=== PATIENT | male | born 1940 | race Asian ===

== ENCOUNTER 2020-02-10 06:09 | Day surgery (SDC) | payer OTHER ==
[2020-02-09 17:27] VITALS: BMI 17.9
[2020-02-10] MEDS ORDERED: LIDOCAINE HCL 1%, 10 MG/ML (20ML VIAL) ONE ×2 (07:15→08:34)
[2020-02-10] MEDS ORDERED: HEPARIN NA (PORCINE) 5,000 UNITS/ML 1ML VIAL ONE ×4 (07:15→09:27)
[2020-02-10] MEDS ORDERED: POVIDONE-IODINE OINTMENT 10% - 28.4 GM TUBE ONE (07:16)
[2020-02-10] MEDS ORDERED: LIDOCAINE HCL 1%, 10 MG/ML (20ML VIAL) ID ONE ×4 (07:42→08:25)
[2020-02-10] MEDS ORDERED: HEPARIN NA (PORCINE) 5,000 UNITS/ML 1ML VIAL SQ ONE ×2 (07:43→08:41)
[2020-02-10] MEDS ORDERED: POVIDONE-IODINE OINTMENT 10% - 28.4 GM TUBE TP ONE (07:46)
--- NOTE | 2020-02-10 07:55 | HP ---
Admitting History and Physical - Admission Chief Complaint: Pt here for left avg insertion. History Source: Patient Limitations to Obtaining History: No Limitations - Smoking History Smoking history: Never smoked Have you smoked in the past 12 months: No - Alcohol/Substance Use Hx Alcohol Use: No Home Medications - Allergies Allergies/Adverse Reactions: Allergies Allergy/AdvReac Type Severity Reaction Status Date / Time hydralazine Allergy Intermediate Rash Verified 02/09/20 17:32 NSAIDS (Non-Steroidal AdvReac Intermediate GI Bleed Verified 02/09/20 17:32 Anti-Inflamma - Home Medications Home Medications: Ambulatory Orders Famotidine 20 mg PO DAILY 01/17/20 Nifedipine [Nifedipine ER] 120 mg PO BID 01/17/20 Calcium Acetate [Phoslo -] 667 mg PO TID 02/09/20 Carvedilol 12.5 mg PO DAILY 02/09/20 Clonidine HCl 0.3 mg PO DAILY 02/09/20 Isosorbide Dinitrate [Isoditrate ER] 40 mg PO TID 02/09/20 Levothyroxine [Synthroid -] 25 mcg PO DAILY 02/09/20 Review of Systems - Review of Systems Constitutional: reports: No Symptoms Eyes: reports: No Symptoms HENT: reports: No Symptoms Neck: reports: No Symptoms Cardiovascular: reports: No Symptoms Respiratory: reports: No Symptoms Gastrointestinal: reports: No Symptoms Genitourinary: reports: No Symptoms Breasts: reports: No Symptoms Reported Musculoskeletal: reports: No Symptoms Integumentary: reports: No Symptoms Neurological: reports: No Symptoms Endocrine: reports: No Symptoms Hematology/Lymphatic: reports: No Symptoms Psychiatric: reports: No Symptoms Physical Examination Vital Signs: Vital Signs Temperature 97.8 F 02/10/20 06:56 Pulse Rate 52 L 02/10/20 06:56 Respiratory Rate 20 02/10/20 06:56 Blood Pressure 112/58 L 02/10/20 06:56 O2 Sat by Pulse Oximetry (%) 100 02/10/20 06:56 Constitutional: Yes: Well Nourished, No Distress, Calm Eyes: Yes: WNL, Conjunctiva Clear, EOM Intact HENT: Yes: WNL, Atraumatic, Normocephalic Neck: Yes: WNL, Supple, Trachea Midline Cardiovascular: Yes: WNL, Regular Rate and Rhythm Respiratory: Yes: WNL, Regular, CTA Bilaterally Gastrointestinal: Yes: WNL, Normal Bowel Sounds Musculoskeletal: Yes: WNL Extremities: Yes: WNL Edema: No Integumentary: Yes: WNL Neurological: Yes: WNL, Alert, Oriented ...Motor Strength: WNL Psychiatric: Yes: WNL Problem List - Problems (1) ESRD (end stage renal disease) Assessment/Plan: for left avg insertion today Laureano Domingo DO Problems reviewed: Yes Code(s): N18.6 - END STAGE RENAL DISEASE
[2020-02-10] MEDS ORDERED: PROPOFOL 20 ML ONE (08:01)
[2020-02-10] MEDS ORDERED: MIDAZOLAM HCL 2 MG/2 ML SINGLE DOSE VIAL ONE ×2 (08:01→08:17)
[2020-02-10] MEDS ORDERED: ceFAZolin SODIUM 1 GM VIAL ONE (08:15)
[2020-02-10] MEDS ORDERED: ceFAZolin 2 GRAM PREMIX BAG IVPB ONE (08:19)
[2020-02-10] MEDS ORDERED: ONDANSETRON 4 MG/2 ML VIAL IVPUSH PRN (10:16)
[2020-02-10] MEDS ORDERED: oxyCODONE HCL 5 MG TABLET PO PRN (10:16)
--- NOTE | 2020-02-10 10:19 | OP ---
Operative Note - Note: Operative Date: 02/10/20 Pre-Operative Diagnosis: ESRD Operation: Insertion of left AVG Post-Operative Diagnosis: Same as Pre-op Surgeon: Laureano Domingo Anesthesia: Fractional Estimated Blood Loss (mls): 50 Operative Report Dictated: Yes
[2020-02-10] MEDS ORDERED: LABETALOL HCL 5 MG/1 ML (100MG/20 ML VIAL) IVPUSH ONE (12:20)
[2020-02-10 13:03] VITALS: BP 161/73; PULSE 62; TEMP 97.6
--- NOTE | 2020-02-24 23:47 | OP ---
DATE OF OPERATION: 02/10/2020 PREOPERATIVE DIAGNOSIS: End-stage renal disease. POSTOPERATIVE DIAGNOSIS: End-stage renal disease. PROCEDURE: Insertion of left arteriovenous graft. SURGEON: Laureano Marie MD. ANESTHESIA: Fractional. BLOOD LOSS: 50 mL. INDICATION: The patient is a 79-year-old male that needs permanent dialysis access. Patient had preoperative done in our office showing he does not have any adequate veins, he needs a graft to be placed. We decided that we would place an Acuseal graft so that it could be accessed as soon as possible. Patient got medical and cardiology clearance. The patient came into ambulatory surgery, had a COVID test done which was negative. Patient was then consented for the procedure understanding all risks, benefits, and alternatives and taken to the operating room. DESCRIPTION OF PROCEDURE: Once in the operating room, he was laid on the operating table in a supine manner, and the area of the left arm was prepped and draped in sterile surgical manner. We then using ultrasound guidance mapped out basilic vein and our brachial vein and decided the brachial vein was big, and we went ahead and using a skin marker cristobal and marked off our brachial vein in the upper arm. We then went ahead and went down to the brachial artery above the antecubital fossa and we mapped that out. We then went ahead and injected 10 mL of lidocaine 1% over the incision for the brachial/axillary vein. We then went ahead and using a number 15-blade made a 4 to 5-cm incision. Bovie cautery was used to control hemostasis and we were able to get down through all the subcutaneous tissue. Once we got down to the fascia, we opened the fascia, and we were able to open the axillary vein. Axillary vein was then dissected anteriorly and posteriorly and Vesseloops were placed around it. We then went down above the antecubital space. We injected 10 mL of lidocaine 1% over our incision. We then used a 15-blade and made a 3.5-cm incision. Bovie cautery was used to control hemostasis, and we were able to get down through all the subcutaneous tissue and open the fascia, and we were able to dissect out our brachial artery. Brachial artery dissected out posteriorly and Vesseloops were placed proximally and distally. We then went ahead and used our tunnel dye stand loader, and we tunneled from the arterial to the venous portion. We then placed the graft inside the tunneler, and the graft was tunneled through. We then administered 5000 units of IV heparin to the patient. We doubled our arterial graft. We then after 3 minutes of being on IV heparin, we got distal proximal control on the artery. We then used a 15-blade and made an arteriotomy, extending it to 7 mm using Jean scissors. 6-0 Prolene stay sutures were placed. We then used 6.0 Prolene double arm and went outside-in on the graft and inside-out on the artery, and ran the suture around to form anastomosis of the artery in the graft. We opened the distal artery first and the proximal artery, and there was good flow in our graft, and the graft was clamped using a vascular clamp. We then used heparinized saline, and then we went ahead and washed out the graft and using suction, we suctioned out all the contents. We then cut the graft to size for the venous portion and doubled it to 1 cm. We went ahead and got distal and proximal control on our vein. Using a 15-blade and made a venotomy, extending it to 1 cm using Jean scissors. We placed 6-0 Prolene stay sutures on the vein. We then used 6.0 Prolene double arm and went outside-in on the graft and inside-out on the vein, and ran the suture around to form anastomosis of the artery between graft and the vein. Once completed, we opened the distal vein first, then the proximal vein. We then unclamped the graft, and there was a good thrill in our graft that we can feel all the way up. At this point, we irrigated both sounds copiously. 3-0 Vicryl was used and subcutaneous tissue was approximated in an interrupted manner, and the skin was closed with skin you for both incisions. 4x4s and Tegaderms were placed. Patient tolerated procedure with no complications. Total blood loss 50 mL. Patient transferred back in stable condition. LAUREANO MARIE DO NP/[id number]
== END 2020-02-10 13:05 | disposition home or self-care (01) ==
LOC: JASU-SURG 06:09
PROVIDERS: ATTEND Surgery Vascular Surgery
PROC: 03180JD Bypass Left Brachial Artery to Upper Arm Vein with Synthetic Substitute, Open Approach (ICD-10-PCS; principal; 2020-02-10 08:00)
DX: I12.0 Hypertensive chronic kidney disease with stage 5 chronic kidney disease or end stage renal disease (principal); N18.6 End stage renal disease; Z99.2 Dependence on renal dialysis; D64.9 Anemia, unspecified; E03.9 Hypothyroidism, unspecified; E26.01 Conn's syndrome
CPT/HCPCS: 86850; 86900; 86901; 94760; J1644

== ENCOUNTER 2020-02-13 04:28 | Emergency (ER) | payer OTHER ==
[2020-02-13 04:44] VITALS: BMI 19.2
--- NOTE | 2020-02-13 04:45 | PDOC ---
Attending Attestation - Resident Resident Name: TeeKelly - ED Attending Attestation I have performed the following: I have examined & evaluated the patient, The case was reviewed & discussed with the resident, I agree w/resident's findings & plan - HPI HPI: 02/13/20 21:53 Pt comes with pain and swelling of his left arm. Post op 3 days. Swelling and redness down the forearm. - Physicial Exam PE: 02/13/20 21:54 Pt is warm to touch; rectal temp 98.8F Pt has redness and swelling of the entire left arm Pt has normal chest and lungs and heart Pt has soft NT ND abd neuro intact - Medical Decision Making 02/13/20 21:55 Pt signed out to the daytime docs; His [facility] surgeon will come to see him Discharge - Discharge Information Problems reviewed: Yes Clinical Impression/Diagnosis: Swelling, AV fistula Condition: Stable Disposition: HOME - Additional Discharge Information Prescriptions: Oxycodone HCl/Acetaminophen [Percocet 5-325 mg Tablet -] 1 combo PO Q6H PRN #14 tablet MDD 2 PRN Reason: Pain - Follow up/Referral Referrals: Laureano Domingo DO [Primary Care Provider] - - Patient Discharge Instructions Patient Printed Discharge Instructions: DI for AV Fistula or Graft Declotting Additional Instructions: you were seen in the ED for swelling in your left arm/pain after surgery you have been seen by a surgeon follow up with him tomorrow morning at his office your care is not complete until you do so. take all medications as described/directed RETURN TO THE ER: worsening pain, fevers, chills, warmth and redness in your left arm. - Post Discharge Activity
[2020-02-13] MEDS ORDERED: CEFTRIAXONE 1 GM in DEXTROSE 5%-WATER - 50 ML IVPB ONE (05:09)
--- NOTE | 2020-02-13 05:30 | PDOC ---
History of Present Illness - General Chief Complaint: Pain, Acute Stated Complaint: L ARM PAIN S/P SURGERY Time Seen by Provider: 02/13/20 04:42 History Source: Patient, Spouse Exam Limitations: No Limitations - History of Present Illness Initial Comments: Pt is a 79 yo M, with PMH of ESRD (R chest permacath, now has L AVF), HTN, HLD, ruptured AAA (s/p repair), who is presenting from home with complaints of pain to the LUE after his L AVF placement 02/09 (Dr. Domingo). Pt states the pain has been increasing since the surgery, but tonight had increased swelling and pain throughout the arm. Pts provided tylenol at 2 am with minimal relief. Pt denies any fevers/chills, headache, vision changes, syncope, chest pain, palpitations, SOB, nausea/vomiting, abdominal pain, urinary symptoms, diarrhea/constipation, or leg swelling. Allergies: NKDA Vascular: Dr. Domingo Social: Pt denies any cigarette, alcohol, or drug use. Pt denies any recent travel or sick contacts. Surgical: L AVF placement 02/09, AAA repair Family: no relevant history. 02/13/20 06:48 03/01/20 08:54 Past History - Travel History Traveled outside of the country in the last 30 days: No Close contact w/someone who was outside of country & ill: No - Medical History Allergies/Adverse Reactions: Allergies Allergy/AdvReac Type Severity Reaction Status Date / Time hydralazine Allergy Intermediate Rash Verified 02/13/20 04:37 NSAIDS (Non-Steroidal AdvReac Intermediate GI Bleed Verified 02/13/20 04:37 Anti-Inflamma Home Medications: Ambulatory Orders Famotidine 20 mg PO DAILY 01/17/20 Nifedipine [Nifedipine ER] 60 mg PO BID 01/17/20 Carvedilol 12.5 mg PO DAILY 02/09/20 Clonidine HCl 0.3 mg PO DAILY 02/09/20 Isosorbide Dinitrate [Isoditrate ER] 40 mg PO TID 02/09/20 Levothyroxine [Synthroid -] 25 mcg PO DAILY 02/09/20 Furosemide [Lasix -] 80 mg PO DAILY 02/21/20 Anemia: Yes Asthma: No Cancer: No Cardiac Disorders: No CVA: No COPD: No CHF: No Dementia: No Diabetes: No GI Disorders: No Disorders: No HTN: Yes (right inguinal hernia repair) Hypercholesterolemia: No Liver Disease: No Seizures: No Thyroid Disease: No - Surgical History Abdominal Surgery: Yes (hernia repair) Appendectomy: No Cardiac Surgery: Yes Cholecystectomy: No Lung Surgery: No Neurologic Surgery: No Orthopedic Surgery: No - Psycho-Social/Smoking History Smoking History: Never smoked Have you smoked in the past 12 months: No Information on smoking cessation initiated: No - Substance Abuse Hx (Audit-C & DAST Scrn) How often the patient has a drink containing alcohol: Never Score: In Men: 4 or > Positive; In Women: 3 or > Positive: 0 Screen Result (Pos requires Nsg. Audit-10AR): Negative In the last yr the pt used illegal drug/Rx for NonMed reason: No Score: Yes response is considered Positive: 0 Screen Result (Positive result requires Nsg. DAST-10): Negative Review of Systems - Review of Systems Able to Perform ROS?: Yes Is the patient limited Lao proficient: No Constitutional: Yes: Weight Stable. No: Chills, Diaphoresis, Fever, Loss of Appetite, Malaise, Weakness HEENTM: No: Recent change in vision, Nose Congestion, Throat Pain Respiratory: No: Cough, Orthopnea, Shortness of Breath Cardiac (ROS): No: Chest Pain, Edema, Irregular Heart Rate, Lightheadedness, Palpitations, Syncope, Chest Tightness ABD/GI: No: Constipated, Diarrhea, Nausea, Poor Appetite, Poor Fluid Intake, Vomiting, Abdominal cramping : No: Burning, Hematuria Musculoskeletal: No: Back Pain Integumentary: Yes: See HPI (swelling, pain surrounding AVF surgical site) Neurological: No: Headache, Numbness, Paresthesia, Weakness, Dizziness Psychiatric: No: Change in Appetite Endocrine: No: Increased Urine, Change in Weight Hematologic/Lymphatic: Yes: Other (AAA repair, no recent clots ) All Other Systems: Reviewed and Negative *Physical Exam - Vital Signs Last Vital Signs Temp Pulse Resp BP Pulse Ox 97.8 F 57 L 20 142/66 100 02/13/20 04:40 02/13/20 04:40 02/13/20 04:40 02/13/20 04:40 02/13/20 04:40 - Physical Exam Vitals stable, pt afebrile. Pt in NAD, thin body habitus. Pt alert and oriented x3. beamer operator generally intact, muscular strength and sensation intact. Thrill at AVF site, radial pulses intact b/l upper extremities, sensation intact throughout both upper extremities. No midline spinal tenderness, step-offs, or crepitus. Head normocephalic, atraumatic. Eyes PERRLA, EOMI. Oropharynx without erythema or exudates, no LAD b/l. No nasal congestion. Hearing intact. Clear heart sounds, S1/S2, no JVD, b/l pedal edema, or heart murmur. Clear lung sounds, no respiratory distress, wheezes, crackles, or accessory muscle use. Permacath in place R upper chest wall. Bandage clean, no surrounding drainage or erythema. No abdominal or CVA tenderness to palpation, no rebound, no guarding. Abdomen soft, non-distended, and with normoactive bowel sounds. L AVF site with clean dressing, you intact without significant erythema or drainage. Localized edema surrounding surgical site. Blistering with superficial skin sloughing around bandage adhesive site. Skin otherwise without jaundice or rash. 03/01/20 08:57 ED Treatment Course - LABORATORY CBC & Chemistry Diagram: 02/13/20 05:54 02/13/20 05:54 Medical Decision Making - Medical Decision Making Pt was seen at bedside, also will be seen by attending Dr. Mota. Pt presenting with swelling surrounding surgical site with pain, localized reaction surrounding adhesive site. Likely 2/2 to adhesive reaction. Pulses intact, no crepitus, unlikely deep infection or compartment syndrome. Thrill present at AVF site. Providing IV ofirmev and benadryl for improvement of pain and localized reaction. Ceftriaxone ordered by Dr. Mota to cover for potential overlying cellulitis to surgical site. Pt signed out to day team (Dr. Hastings), pending vascular consult and labs. 03/01/20 09:01 Discharge - Discharge Information Problems reviewed: Yes Clinical Impression/Diagnosis: Swelling, AV fistula - Follow up/Referral Referrals: Laureano Domingo DO [Primary Care Provider] - - Patient Discharge Instructions Patient Printed Discharge Instructions: DI for AV Fistula or Graft Declotting Additional Instructions: you were seen in the ED for swelling in your left arm/pain after surgery you have been seen by a surgeon follow up with him tomorrow morning at his office your care is not complete until you do so. take all medications as described/directed RETURN TO THE ER: worsening pain, fevers, chills, warmth and redness in your left arm. - Post Discharge Activity
[2020-02-13] MEDS ORDERED: CEFTRIAXONE 1 GM/50 ML BAG ONE (05:35)
[2020-02-13 06:02] LABS: EOS % 5.8 % (0-4.5); HEMATOCRIT 33.9 % (35.4-49); HEMOGLOBIN 10.9 GM/dL (11.7-16.9); LYMPH % 17.3 % (8-40); MEAN CELL VOLUME 93.8 fl (80-96); MONO % 10.6 % (3.8-10.2); NEUT % 65.3 % (42.8-82.8); PLATELET COUNT 74 K/MM3 (134-434); RBC 3.62 M/mm3 (4.00-5.60); RDW 16.3 % (11.9-15.9); WHITE BLOOD COUNT 5.6 K/mm3 (4.0-10.0)
[2020-02-13 06:29] LABS: ALBUMIN 2.8 g/dl (3.4-5.0); BILIRUBIN,TOTAL 0.2 mg/dL (0.2-1); BLOOD UREA NITROGEN 47.8 mg/dL (7-18); CALCIUM 8.1 mg/dL (8.5-10.1); CREATININE 4.8 mg/dL (0.55-1.3); POTASSIUM 4.2 mmol/L (3.5-5.1); TOT PROT 6.2 g/dl (6.4-8.2)
[2020-02-13] MEDS ORDERED: ACETAMINOPHEN 1000 MG/100 ML VIAL (NON FORMULARY) IVPB ONE (06:53)
--- NOTE | 2020-02-13 07:14 | PDOC ---
*Physical Exam - Vital Signs Last Vital Signs Temp Pulse Resp BP Pulse Ox 98.0 F 56 L 18 184/67 H 100 02/13/20 06:36 02/13/20 06:36 02/13/20 06:36 02/13/20 06:36 02/13/20 06:36 ED Treatment Course - LABORATORY CBC & Chemistry Diagram: 02/13/20 05:54 02/13/20 05:54 - ADDITIONAL ORDERS Additional order review: Laboratory Results 02/13/20 05:54 Sodium 136 Potassium 4.2 Chloride 105 Carbon Dioxide 21 Anion Gap 10 BUN 47.8 H Creatinine 4.8 H Est GFR (CKD-EPI)AfAm 12.49 Est GFR (CKD-EPI)NonAf 10.77 Random Glucose 105 Calcium 8.1 L Total Bilirubin 0.2 AST 13 L ALT 12 L Alkaline Phosphatase 100 C-Reactive Protein 4.4 H Total Protein 6.2 L Albumin 2.8 L 02/13/20 05:54 RBC 3.62 L MCV 93.8 MCHC 32.0 RDW 16.3 H MPV 8.0 Neutrophils % 65.3 Lymphocytes % 17.3 D Monocytes % 10.6 H D Eosinophils % 5.8 H D Basophils % 1.0 - Medications Given in the ED: ED Medications Discontinued Medications Generic Name Dose Route Start Last Admin Trade Name Sussy PRN Reason Stop Dose Admin Diphenhydramine HCl 25 mg 02/13/20 05:09 02/13/20 06:11 Benadryl Injection - IVPUSH 02/13/20 05:10 25 mg ONCE ONE Administration Ceftriaxone Sodium 1 gm/ 50 mls @ 100 mls/hr 02/13/20 05:09 02/13/20 06:11 Dextrose IVPB 02/13/20 05:38 100 mls/hr ONCE ONE Administration Medical Decision Making - Medical Decision Making 02/13/20 07:13 Pt is a 79 yo M, with PMH of ESRD (permacath, now has L AVF), HTN, HLD, ruptured AAA (s/p repair), who is presenting from home with complaints of pain to the LUE after his L AVF placement 02/09 (Dr. Gunn) labs pending Dr. Gunn en route has gotten rocephin and benadryl due tylenol. 02/13/20 07:14 02/13/20 09:[address] gunn : impression post op swelling d/c with pain medications. Discharge - Discharge Information Problems reviewed: Yes Clinical Impression/Diagnosis: Swelling, AV fistula Condition: Stable Disposition: HOME - Admission No - Follow up/Referral Referrals: Laureano Gunn DO [Primary Care Provider] - - Patient Discharge Instructions Patient Printed Discharge Instructions: DI for AV Fistula or Graft Declotting Additional Instructions: you were seen in the ED for swelling in your left arm/pain after surgery you have been seen by a surgeon follow up with him tomorrow morning at his office your care is not complete until you do so. take all medications as described/directed RETURN TO THE ER: worsening pain, fevers, chills, warmth and redness in your left arm. - Post Discharge Activity
[2020-02-13] MEDS ORDERED: ACETAMINOPHEN INJECTION 100 ML IVPB ONE (08:10)
[2020-02-13] MEDS ORDERED: oxyCODONE HCL 5 MG TABLET PO ONE (09:43)
[2020-02-13 09:55] LABS: ERYTHROCYTE SEDIMENTATION RATE 7 mm/hr (0-20)
[2020-02-13] MEDS ORDERED: oxyCODONE HCL 5 MG TABLET ONE (10:03)
[2020-02-13 10:46] VITALS: BP 162/87; PULSE 65; TEMP 97.6
[2020-02-13] MEDS ORDERED: HEPARIN NA (PORCINE) 5,000 UNITS/ML 1ML VIAL IVPUSH ONE (11:25)
[2020-02-13] MEDS ORDERED: HEPARIN NA (PORCINE) 5,000 UNITS/ML 1ML VIAL ONE (11:31)
--- NOTE | 2020-02-13 12:22 | CONSULT ---
Consult Consult Specialty:: Nephrology Reason for Consultation:: ESRD - History of Present Illness Chief Complaint: presented with left arm pain after fistula placement History of Present Illness: Pt is a 79 year old male with pmhx of esrd, htn, hld, AAA who presented with left arm pain after avf placement. He had the avf placed on 02/09. He was evaluated by Dr Domingo and was sent out. I was called today and told that night nurse accessed is permacath. Pt was called back to the er. I spoke to Dr Domingo who advised to change dressing and heplock the catheter. Pt has no complaints. - Past Medical History Cardio/Vascular: Yes: HTN Renal/: Yes: Renal Inusuff, Hemodialysis - Alcohol/Substance Use Hx Alcohol Use: No - Smoking History Smoking history: Never smoked Have you smoked in the past 12 months: No Home Medications - Allergies Allergies/Adverse Reactions: Allergies Allergy/AdvReac Type Severity Reaction Status Date / Time hydralazine Allergy Intermediate Rash Verified 02/13/20 04:37 NSAIDS (Non-Steroidal AdvReac Intermediate GI Bleed Verified 02/13/20 04:37 Anti-Inflamma - Home Medications Home Medications: Ambulatory Orders RX: Famotidine 20 mg PO DAILY 01/17/20 RX: Nifedipine [Nifedipine ER] 120 mg PO BID 01/17/20 RX: Calcium Acetate [Phoslo -] 667 mg PO TID 02/09/20 RX: Carvedilol 12.5 mg PO DAILY 02/09/20 RX: Clonidine HCl 0.3 mg PO DAILY 02/09/20 RX: Isosorbide Dinitrate [Isoditrate ER] 40 mg PO TID 02/09/20 RX: Levothyroxine [Synthroid -] 25 mcg PO DAILY 02/09/20 Oxycodone HCl/Acetaminophen [Percocet 5-325 mg Tablet -] 1 combo PO Q6H PRN #14 tablet MDD 2 02/13/20 Family Medical History Family History: Denies Review of Systems - Review of Systems Constitutional: reports: No Symptoms Eyes: reports: No Symptoms HENT: reports: No Symptoms Neck: reports: No Symptoms Cardiovascular: reports: No Symptoms Respiratory: reports: No Symptoms Gastrointestinal: reports: No Symptoms Genitourinary: reports: No Symptoms Musculoskeletal: reports: Other (left arm discomfort) Neurological: reports: No Symptoms Endocrine: reports: No Symptoms Hematology/Lymphatic: reports: No Symptoms Psychiatric: reports: No Symptoms Physical Exam Vital Signs: Vital Signs Temperature 97.6 F 02/13/20 09:50 Pulse Rate 65 02/13/20 09:50 Respiratory Rate 18 02/13/20 09:50 Blood Pressure 162/87 02/13/20 09:50 O2 Sat by Pulse Oximetry (%) 100 02/13/20 09:50 Constitutional: Yes: Calm Eyes: Yes: Conjunctiva Clear Cardiovascular: Yes: S1, S2 Respiratory: Yes: CTA Bilaterally Gastrointestinal: Yes: Soft Renal/: Yes: WNL Extremities: Yes: Other (avf with thrilland bruit) Edema: LUE: 1+ Neurological: Yes: Oriented Psychiatric: Yes: Oriented Labs: CBC, BMP 02/13/20 05:54 02/13/20 05:54 Problem List - Problems (1) AV fistula Code(s): I77.0 - ARTERIOVENOUS FISTULA, ACQUIRED (2) ESRD (end stage renal disease) Code(s): N18.6 - END STAGE RENAL DISEASE (3) Swelling Code(s): R60.9 - EDEMA, UNSPECIFIED Assessment/Plan Impression 1. ESRD 2. pain in fistula 3. htn 4. aaa 5. hld Plan - permacath site cleaned and flushed - pt going to hd tomorrow - follow with Dr Domingo also tomorrow afternoon - renal diet - discussed plan with ER
== END 2020-02-13 11:30 | disposition home or self-care (01) ==
LOC: JER 04:28
PROC: 3E033NZ Introduction of Analgesics, Hypnotics, Sedatives into Peripheral Vein, Percutaneous Approach (ICD-10-PCS; principal; 2020-02-13)
PROC: 3E033GC Introduction of Other Therapeutic Substance into Peripheral Vein, Percutaneous Approach (ICD-10-PCS; 2020-02-13)
PROC: 3E0337Z Introduction of Electrolytic and Water Balance Substance into Peripheral Vein, Percutaneous Approach (ICD-10-PCS; 2020-02-13)
DX: I77.0 Arteriovenous fistula, acquired (principal)
CPT/HCPCS: 36415; 80053; 85025; 85651; 86140; 87040; 96361; 96374; 96375; 99285-25; J0131; J1644